=== PATIENT | male | born 1995 | race African-American/Black ===

== ENCOUNTER 2018-07-11 22:22 | Emergency (ER) | payer BC, OTHER ==
[2018-07-11] MEDS ORDERED: IBUPROFEN 600 MG TABLET ONE (23:35)
== END 2018-07-12 00:51 | disposition home or self-care (01) ==
LOC: EDH 22:22
DX: S86.811A Strain of other muscle(s) and tendon(s) at lower leg level, right leg, initial encounter (principal); X58.XXXA Exposure to other specified factors, initial encounter; Y93.39 Activity, other involving climbing, rappelling and jumping off; Y92.39 Other specified sports and athletic area as the place of occurrence of the external cause; Y99.8 Other external cause status
CPT/HCPCS: 93971